=== PATIENT | female | born 1955 | race Two or more races ===

== ENCOUNTER 2021-02-25 08:27 | Outpatient (CLI) | payer OTHER ==
[~2021-02-25 08:27] MED LIST: PEPCID40 MG PO; ZITHROMAX500 MG PO; ZOFRAN4 MG PO
== END 2021-02-25 09:05 | disposition home or self-care (01) ==
LOC: SONOGRAMA 08:27
PROVIDERS: ATTEND Pathology Anatomic Pathology & Clinical Pathology
DX: D34 Benign neoplasm of thyroid gland (principal); C73 Malignant neoplasm of thyroid gland; E04.8 Other specified nontoxic goiter

== ENCOUNTER 2022-05-23 12:38 | Outpatient (CLI) | payer OTHER | END 2022-05-23 12:39 | disposition home or self-care (01) | LOC: NUCLEAR 12:38 | PROVIDERS: ATTEND Internal Medicine Sports Medicine | DX: C73 Malignant neoplasm of thyroid gland (principal); Z88.0 Allergy status to penicillin | CPT/HCPCS: 78015; A9531 ==

== ENCOUNTER 2025-02-15 14:38 | Emergency (ER) | payer OTHER ==
[~2025-02-15] VITALS: Ht 147.3 cm; Wt 39.0 kg
[2025-02-15 15:10] VITALS: BP 132/80; O2SAT 100
== END 2025-02-15 17:13 | disposition home or self-care (01) ==
LOC: ER 14:38
DX: S82.092A Other fracture of left patella, initial encounter for closed fracture (principal); X58.XXXA Exposure to other specified factors, initial encounter; Y93.89 Activity, other specified; Y92.098 Other place in other non-institutional residence as the place of occurrence of the external cause; Y99.8 Other external cause status; Z88.0 Allergy status to penicillin